=== PATIENT | male | born 1955 | race African-American/Black ===

== ENCOUNTER 2022-07-15 08:08 | Outpatient (CLI) | payer MEDICARE, MEDICAID, SELFPAY ==
[2022-07-15 10:09] LABS: Hemoglobin 11.6 g/dL (14.0-18.0)
[2022-07-15 10:13] LABS: Anion Gap 13 mmol/L (8-16); Blood Urea Nitrogen 17 mg/dL (9-20); Calcium 9.1 mg/dL (8.4-10.2); Carbon Dioxide 26 mmol/L (22-30); Chloride 100 mmol/L (98-107); Estimated Glomerular Filt Rate 57; Glucose 178 mg/dL (65-110); Potassium 3.7 mmol/L (3.4-5.0); Sodium 139 mmol/L (137-145)
== END 2022-07-15 08:09 | disposition home or self-care (01) ==
PROVIDERS: Anesthesiology; Urology; PCP Internal Medicine; Visit Provider Surgery
DX: T83.9XXA Unspecified complication of genitourinary prosthetic device, implant and graft, initial encounter (principal); K40.90 Unilateral inguinal hernia, without obstruction or gangrene, not specified as recurrent; E11.9 Type 2 diabetes mellitus without complications; Z01.818 Encounter for other preprocedural examination
CPT/HCPCS: 36415; 80048; 83036; 85014; 85018; 87086

== ENCOUNTER 2023-02-11 11:52 | Outpatient (CLI) | payer MEDICARE, MEDICAID, SELFPAY ==
--- NOTE | 2023-02-11 12:59 | ECG_ITS ---
Measurements Intervals [place] Rate: 75 P: 31 KS: 228 QRS: -35 QRSD: 93 T: 69 QT: 388 QTc: 434 Interpretive Statements SINUS RHYTHM WITH FIRST DEGREE AV BLOCK LEFT AXIS DEVIATION LEFT VENTRICULAR HYPERTROPHY WITH ST-T CHANGE BORDERLINE R WAVE PROGRESSION, ANTERIOR LEADS BORDERLINE ECG NO PREVIOUS ECG AVAILABLE FOR COMPARISON Electronically Signed On 02-11-2023 13:20:49 CDT by Delbert Marinelli D.O.
[2023-02-11 13:22] LABS: Hematocrit 35.2 % (42.0-52.0); Hemoglobin 11.1 g/dL (14.0-18.0)
[2023-02-11 13:32] LABS: Hemoglobin A1C 6.6 % (<5.7)
[2023-02-11 13:35] LABS: Anion Gap 9 mmol/L (8-16); Blood Urea Nitrogen 30 mg/dL (9-20); Calcium 8.9 mg/dL (8.4-10.2); Carbon Dioxide 26 mmol/L (22-30); Chloride 103 mmol/L (98-107); Estimated Glomerular Filt Rate 56; Glucose 89 mg/dL (65-110); Potassium 4.1 mmol/L (3.4-5.0); Sodium 138 mmol/L (137-145)
== END 2023-02-11 11:53 | disposition home or self-care (01) ==
LOC: ANHSURGERY 11:56
PROVIDERS: Anesthesiology; PCP Internal Medicine; Visit Provider Urology
DX: T83.9XXA Unspecified complication of genitourinary prosthetic device, implant and graft, initial encounter (principal); K40.90 Unilateral inguinal hernia, without obstruction or gangrene, not specified as recurrent; I10 Essential (primary) hypertension; E11.9 Type 2 diabetes mellitus without complications
CPT/HCPCS: 36415; 80048; 83036; 85014; 85018; 87086; 93005

== ENCOUNTER 2023-03-10 00:48 | Day surgery (SDC) | payer MEDICARE, MEDICAID, SELFPAY ==
[2023-02-11 12:03] VITALS: BMI 27.9
[2023-02-11 12:35] VITALS: BP 114/65; PULSE 75; RESP 18; TEMP 36.6; O2SAT 99
--- NOTE | 2023-02-11 12:38 | PC.NURSE ---
Addendum entered by Crystal Fofana RN 03/01/23 12:35: NOTIFIED PT BY PHONE THAT PER INSTRUCTIONS RECEIVED FROM DR. CRAVEN'S OFFICE, PLAVIX IS ONLY TO BE HELD 5 DAYS,NOT 7. INSTRUCTED TO TAKE LAST DOSE PLAVIX 03/04. VERBALIZED UNDERSTANDING. Original Note: Report to the Outpatient Waiting Room, entrance under the green pavilion located off [facility], at time __0830 on date _03/10/23 . Planned Procedure Time: _1030 . Time changes happen often and if your time is changed the preop area will call you the afternoon before. - You and your visitor will be asked to self-screen and do not enter if you have any COVID symptoms. - A mask is optional within the hospital at this time. Patients may have clear liquids (water, carbonated beverages, clear teas, apple juice) until 3 hours prior to surgery with a maximum of 20 ounces. - No food from midnight until time of surgery - Infants may have breast milk until 4 hours before surgery, infant formula 6 hours prior to surgery. - Children will be allowed to drink immediately following surgery. If applicable, please bring a bottle or sippy cup to assist with drinking. Juice, water, soda, and popsicles are readily available. For infants on formula, please bring formula the day of surgery. Pacifiers are allowed. Take the following medications with a SIP of water the morning of surgery: __CLONIDINE ,METOPROLOL AND FELODIPINE DO NOT STOP ANY OF YOUR OTHER PRESCRIPTION MEDICATIONS PRIOR TO SURGERY ?EXCEPT THE FOLLOWING Medications to discontinue per physician __PT STATES PER DR CRAVEN HOLD PLAVIX 7 DAYS PRE OP.LAST DOSE 03/02/23. ALL VITAMINS/SUPPLEMENTS 3 DAYS PRE OP.LAST DOSE 03/06/23 HIBICLENS SHOWER MORNING OF SURGERY Please no make-up, nail faroese, hairspray, perfume, deodorant, or body powder the day of surgery. No jewelry (including any body piercings) or valuables the day of surgery, leave them at home. Please take a shower or bath the night before, or the morning of, surgery with an antibacterial soap. Wear comfortable, loose fitting clothing. Children are encouraged to wear pajamas. - Jewelry must be removed prior to entering the operating room. Rings and piercings that are not removed may be cut off. - The hospital will not accept responsibility for valuables. - Please leave all valuables, including medications, at home the day of surgery. If you are going home after surgery, a licensed driver manager must drive you home. - NO public transportation without another adult if you receive anesthesia. - We recommend that an adult stay with you for 24 hours following discharge. - We also recommend that you do not drive, make important decision, drink alcoholic beverages, or take any drugs that were not prescribed by your health care provider for at least 24 hours after your discharge time. For Pediatric surgeries, we recommend two adults accompany the child home. Follow any additional instructions given to you from your surgeon. If you or anyone in your household have experienced Covid symptoms in the past week, please notify your surgeon or the nurse liaison at the phone number below for possible testing. VERBAL AND WRITTEN instructions given to __PATIENT and asked if any additional questions and then verbalized understanding. Patient advised to call surgeon office or pre surgery nurse liaison [phone] if any additional questions.
--- NOTE | 2023-03-09 17:17 | PM.SD2 ---
Same Day Admit/Disch: HPI History of Present Illness Chief complaint: right inguinal hernia,IPP malfunction Narrative: Jaspal Bernabe is a 67 year old male with diabetes and hypertension. He had penile prosthesis placed at [facility] sometime in 2020. Prosthesis was working well but he noticed a mass in the upper scrotum on the right side. He was seen by Dr. Santamaria in March of 2022. CT scan had been done and showed malposition of the reservoir as well as a right inguinal hernia underlying the reservoir. I the saw the patient in consultation and discussed him with Dr. Santamaria. Plans were made to proceed with repositioning or replacement of his implantable penile prosthesis as well as repair of a right inguinal hernia at the same open procedure. Unfortunately, the patient had had a stroke in December of 2021 and the procedure could not be done for at least 6 months afterwards. Once it was appropriate to proceed following his stroke, he had poorly controlled diabetes with severe hyperglycemia. His diabetes management and control is much improved. He is taken to surgery at this time for removal and/or replacement of his prosthesis as well as repair of his right inguinal hernia. [facility] Past Medical History Medical History Diabetes Hypertension Stroke 12/2021 Surgical History Surgical History History of implantation of penile prosthesis 2020 Family History Family History Other Breast cancer Lung cancer Social History Social History Smoking status: Never smoker Second hand tobacco smoke exposure: No Alcohol intake: never Substance use: never Substance use type: does not use Living arrangements: alone Occupation/Education: retired Spiritual care concerns: No Same Day Admit/Disch: Med Pre-admit Medications Home Medications Medication Instructions Recorded Confirmed Type aspirin 81 mg tablet,delayed 81 mg PO DAILY 03/30/22 02/11/23 History release atorvastatin 80 mg tablet 80 mg PO DAILY 03/30/22 02/11/23 History clopidogrel 75 mg tablet 75 mg PO DAILY 03/30/22 02/11/23 History dapagliflozin propanediol 5 mg 5 mg PO DAILY 07/11/22 05/25/23 History tablet (Farxiga) felodipine 10 mg tablet,extended 10 mg PO DAILY 03/30/22 02/11/23 History release 24 hr lisinopril 40 mg tablet 40 mg PO DAILY 03/30/22 02/11/23 History metformin 1,000 mg tablet 1,000 mg PO BID 03/30/22 02/11/23 History metoprolol tartrate 100 mg tablet 100 mg PO BID 03/30/22 02/11/23 History sitagliptin phosphate 100 mg 100 mg PO DAILY 03/30/22 02/11/23 History tablet (Januvia) acetaminophen 325 mg tablet 325 mg PO Q6H PRN Pain 04/13/22 02/11/23 History (Tylenol) chlorthalidone 25 mg tablet 25 mg QAM 07/15/22 02/11/23 History clonidine HCl 0.3 mg tablet 0.3 mg QAM 07/15/22 02/11/23 History cyanocobalamin (vitamin B-12) 1,000 mcg PO QAM 07/15/22 02/11/23 History 1,000 mcg tablet gabapentin 100 mg capsule 100 mg HS 07/15/22 02/11/23 History glimepiride 4 mg tablet 4 mg QAM 07/15/22 02/11/23 History pioglitazone 15 mg tablet 15 mg QAM 07/15/22 02/11/23 History multivitamin (Daily Multi-Vitamin 1 tablet PO DAILY 02/11/23 02/11/23 History tablet) oxycodone-acetaminophen 5 mg-325 1 - 2 tablet PO Q6H PRN pain #15 03/10/23 Rx mg tablet (Percocet) tabs sulfamethoxazole 800 1 tablet PO Q12H #14 tabs 03/10/23 Rx mg-trimethoprim 160 mg tablet (Bactrim DS) Exam Const: General: comfortable, no acute distress, alert and awake HENMT: Head: normocephalic and atraumatic Mouth: Yes Normal oral and palatal mucosa present Eyes: Conjunctivae: conjunctivae normal Pupils: Equal, round and reactive pupils present EOM: EOMs intact bilaterally Neck: Neck: normal visual inspection, no lymphadeno
[2023-03-10] VITALS (11 sets, daily range): BP systolic 127–169; BP diastolic 59–76; PULSE 64–81; RESP 12–18; TEMP 35.9–36.2; O2SAT 92–100
[2023-03-10] MEDS: ACETAMINOPHEN 500 MG TABLET 1000 MG PO (08:26)
[2023-03-10] MEDS: LACTATED RINGERS 1,000 ML 30 ML IV CONT ×2 (08:45→13:00)
[2023-03-10] MEDS: VANCOMYCIN 1,250 MG/NS 250 ML BAG 166.67 MG IVPB (08:50)
[2023-03-10] MEDS: GENTAMICIN SULFATE INJ 455 MG in DEXTROSE 5% 100 ML 100 MG IVPB (08:52)
[2023-03-10] MEDS: KETOROLAC 15 MG/ML VIAL (*BKC) IV PUSH (08:58)
[2023-03-10 09:16] LABS: Glucose Point of Care 141 mg/dl (65-105)
--- NOTE | 2023-03-10 09:19 | WPDANESEPPF ---
Anes - Initial Pre Proc Eval Procedure: Operation Date: 03/10/23 10:30 Proposed Procedures p Right Inguinal Hernia Repair - Eusebio Bautista MD s Inflatable Penile Implant [place] Replacement - Rose Dinero MD Date/Time: 03/10/23 09:20 Surgeon: Eusebio Bautista MD Pre Op Diagnosis: right inguinal hernia,IPP malfunction Patient Data Age: 67 Gender: M Height: 1.8 m Weight: 92.7 kg Last Vital Signs Temp 35.9 C L 03/10/23 09:04 Pulse 72 03/10/23 09:04 Resp 18 03/10/23 09:04 BP 138/66 03/10/23 09:04 Pulse Ox 100 03/10/23 09:04 O2 Del Method Room Air 03/10/23 09:04 Allergies Allergy/AdvReac Type Severity Reaction Status Date / Time diphenhydramine AdvReac Itching Verified 03/10/23 08:21 [From [facility]] Home Medications Medication Instructions Recorded Confirmed Type aspirin 81 mg tablet,delayed 81 mg PO DAILY 03/30/22 02/11/23 History release atorvastatin 80 mg tablet 80 mg PO DAILY 03/30/22 02/11/23 History clopidogrel 75 mg tablet 75 mg PO DAILY 03/30/22 02/11/23 History dapagliflozin propanediol 5 mg 5 mg PO DAILY 03/30/22 02/11/23 History tablet (Farxiga) felodipine 10 mg tablet,extended 10 mg PO DAILY 03/30/22 02/11/23 History release 24 hr lisinopril 40 mg tablet 40 mg PO DAILY 03/30/22 02/11/23 History metformin 1,000 mg tablet 1,000 mg PO BID 03/30/22 02/11/23 History metoprolol tartrate 100 mg tablet 100 mg PO BID 03/30/22 02/11/23 History sitagliptin phosphate 100 mg 100 mg PO DAILY 03/30/22 02/11/23 History tablet (Januvia) acetaminophen 325 mg tablet 325 mg PO Q6H PRN Pain 04/13/22 02/11/23 History (Tylenol) chlorthalidone 25 mg tablet 25 mg QAM 07/15/22 02/11/23 History clonidine HCl 0.3 mg tablet 0.3 mg QAM 07/15/22 02/11/23 History cyanocobalamin (vitamin B-12) 1,000 mcg PO QAM 07/15/22 02/11/23 History 1,000 mcg tablet gabapentin 100 mg capsule 100 mg HS 07/15/22 02/11/23 History glimepiride 4 mg tablet 4 mg QAM 07/15/22 02/11/23 History pioglitazone 15 mg tablet 15 mg QAM 07/15/22 02/11/23 History multivitamin (Daily Multi-Vitamin 1 tablet PO DAILY 02/11/23 02/11/23 History tablet) Laboratory Tests 03/10/23 09:00 POC Capillary Glucose 141 H mg/dl (65-105) Patient hx anesthesia problems: none Family hx anesthesia problems: none Results Review: All pre-operative results and documents have been reviewed as part of the pre-operative evaluation. [facility] Past Medical History Medical History Diabetes Hypertension Stroke 12/2021 Surgical History Surgical History History of implantation of penile prosthesis 2020 Family History Family History Other Breast cancer Lung cancer Social History Social History Smoking status: Never smoker Second hand tobacco smoke exposure: No Alcohol intake: never Substance use: never Substance use type: does not use Living arrangements: alone Occupation/Education: retired Spiritual care concerns: No Anes - Eval Final PreProcedure Day of Procedure 03/10/23 09:20 Patient weight: overweight Heart: regular rate and rhythm Lungs: clear to auscultation Airway: Mallampati scale class II Neurological: alert and oriented Last oral intake: >/= 8 hours ASA classification: III Emergent: no Anesthetic plan: proceed Anesthesia type and monitoring: general LMA and standard monitoring Results Review: All pre-operative results and documents have been reviewed as part of the pre-operative evaluation. Informed Consent: The patient's anesthetic plan and its attendant risks and benefits were discussed with the patient/family/POA. Questions were solicited and answers provided to the satisfaction of the patient/family/POA.
--- NOTE | 2023-03-10 10:05 | WPDHPUPDATE1 ---
History and Physical Update Update Date/Time: 03/10/23 10:05 History and Physical has been reviewed, including an updated exam of the patient. There are NO changes in the patient's condition. Risks, benefits, and alternatives have been discussed and questions answered. Patient agrees to proceed with procedure.
--- NOTE | 2023-03-10 10:10 | W.PM.PROC2 ---
Procedure Note - Detailed Date of Procedure 03/10/23 Pre-op Diagnosis right inguinal hernia,IPP malfunction Post-op Diagnosis Same Procedure Performed Right inguinal hernia repair Surgeon Eusebio Bautista MD [employer] Associate Ayaka Hassan [facility] Anesthesia General, Local and Other (Xaracoll) Indications Patient had an inflatable penile prosthesis placed couple of years ago at [facility]. He noticed a mass in his upper scrotum about a year later. CT imaging showed he had a large right inguinal hernia and malposition of the reservoir. Patient is taken to surgery now for repair of his right inguinal hernia. Dr. Santamaria has also seen the patient and plans to revise his inflatable penile prosthesis at the same operation. Dr. Dinero will dictate the penile prosthesis portion of the procedure in a separate dictation. Findings Right inguinal hernia, reservoir and upper scrotum Description of Procedure Patient was seen in the preoperative holding area. He was taken to surgery and induced into general anesthesia. The genitalia and right inguinal regions were prepped and draped. The proposed incision was marked on the skin. Local was infiltrated into the skin and the deeper subcutaneous tissues. Incision was made dissection carried down through the subcutaneous. Crossing veins were cauterized and divided. We dissected down to the external oblique aponeurosis. At this point Dr. Dinero came into the operative field and removed the previous reservoir which was positioned in the upper scrotum. The tubing to the penile prosthesis was clamped and left clamped while the hernia was repaired. I then infiltrated local deep to the external oblique aponeurosis. The aponeurosis was opened laterally and extended medially through the external ring. The leaves of the aponeurosis were freed from the underlying inguinal canal structures. The ilioinguinal nerve was left attached to the cord and uninjured throughout the surgery. The cord was mobilized medially on a Disney drain. I dissected the cord back to the internal ring. The direct hernia sac was found easily. It was dissected away from the cord structures as well as the remainder of the inguinal canal structures. It was also attached to the fibrous capsule around the reservoir. It was dissected away from the fibrous capsule so that it was fully dissected from surrounding structures. I then scored through the transversalis fascia circumferentially around the base of the direct hernia sac. The sac was then dunked into the retroperitoneum. Two 3-0 Vicryl sutures were used to loosely approximate the transversalis fascia over the defect so that the hernia would remain reduced. I then used 0 Ethibond suture and in Bassini fashion closed the hernia defect. I started medially and sutured the transversalis fascia to the pubic tubercle. We proceeded laterally with interrupted 0 Ethibond sutures and sutured transversalis fascia to the reflection of the inguinal ligament. This was continued until the internal ring was reapproximated such that it would barely admit the tip of a clamp. Some lipomatous tissue was then removed from the spermatic cord and discarded. The operation was then turned back over to Dr. Dinero. Dr. Dinero placed a new prosthetic reservoir in the area the external oblique. A reattached this tubing to the existing tubing. Once he was satisfied that the reservoir was repositioned and working well, I went back to closure of the hernia repair. Xaracoll was placed over the hernia repair. I then placed the cord over the Xaracoll. The external oblique aponeurosis was then closed with interrupted 3-0 Vicryl suture. The 2nd piece of Xaracoll was then placed over the external oblique aponeurosis. Amber's fascia was closed with interrupted 3-0 Vicryl suture. The last piece of Xaracoll was placed in the subcutaneous. The skin was loosely approximated with subcuticular interrupted 4-0 V
--- NOTE | 2023-03-10 11:07 | WPDHPUPDATE1 ---
History and Physical Update Update Date/Time: 03/10/23 11:07 History and Physical has been reviewed, including an updated exam of the patient. There are NO changes in the patient's condition. Risks, benefits, and alternatives have been discussed and questions answered. Patient agrees to proceed with procedure.
[2023-03-10] MEDS: NACL 0.9% IRRIG BAG 1,000 ML, VANCOMYCIN HCL 1,000 MG, GENTAMICIN SULFATE INJ 80 MG IRRIGATION (11:56)
[2023-03-10] MEDS: NACL 0.9% IRRIG BAG 1,000 ML, ceFAZolin 1 GM, TOBRAMYCIN SULFATE INJ 40 MG IRRIGATION (11:56)
--- NOTE | 2023-03-10 12:47 | W.PM.PROC2 ---
Procedure Note - Detailed Date of Procedure 03/10/23 Pre-op Diagnosis Penile prosthesis reservoir herniation Post-op Diagnosis Same Procedure Performed Penile prosthesis reservoir replacement Surgeon Rose Dinero MD Anesthesia General Findings Herniation of penile prosthesis reservoir into the superior scrotum Description of Procedure Informed consent was obtained. Patient was taken the operating. Incision and opening of the external oblique fascia was performed by Dr. Bautista in preparation of his hernia repair. The patient's previous penile prosthesis reservoir was identified in the superior scrotum the reservoir was brought up through the incision and then tubing was then cut after placement of a rubber shod. We then measured a total of 85mL in the reservoir. At this point hernia repair was performed by Dr. Bautista closing the floor of the hernia. We then the external oblique muscle and under the muscle, a preperitoneal space was bluntly dissected and irrigated. We then placed a [employer] conceal reservoir. [place] was filled with 85mL of injectable saline without back pressure. We then used the Quick connect device to connect the reservoir to the penile prosthesis pump. The penile prosthesis was then inflated and shown to function appropriately. The case was then turned back over to Dr. Bautista to complete hernia repair and closure. Pathology None sent Complications No immediate complications Condition Stable Disposition No change
[2023-03-10] MEDS: LIDO 1%/EPINEPHRINE 1:100,000 50 ML VIAL 20 ML INFILTRATE (12:48)
[2023-03-10 13:05] LABS: Glucose Point of Care 114 mg/dl (65-105)
[2023-03-10] MEDS: ONDANSETRON INJ 4 MG/2 ML VIAL IV PUSH (13:32)
[2023-03-10] MEDS: PROMETHAZINE HCL 25 MG/ML AMPUL 12.5 MG IV PUSH (13:57)
--- NOTE | 2023-03-10 15:41 | SUR.PHASEII ---
pt said he was on another antibiotic that he has to take for an additional two days by dr freed. this nurse called dr freed since dr singh also prescribed bactrim. dr freed said to take both antibiotics at the same time. pt and pt's daughter were informed
== END 2023-03-10 15:42 | disposition home or self-care (01) ==
PROVIDERS: Urology; PCP Internal Medicine; Visit Provider Surgery
PROC: (CPT 49505; principal; 2023-03-10 10:30)
PROC: (CPT 54410; 2023-03-10 10:30)
DX: K40.90 Unilateral inguinal hernia, without obstruction or gangrene, not specified as recurrent (principal); T83.028A Displacement of other urinary catheter, initial encounter; Y83.8 Other surgical procedures as the cause of abnormal reaction of the patient, or of later complication, without mention of misadventure at the time of the procedure; E11.9 Type 2 diabetes mellitus without complications; I10 Essential (primary) hypertension; Z86.73 Personal history of transient ischemic attack (TIA), and cerebral infarction without residual deficits; Z79.82 Long term (current) use of aspirin; Z79.02 Long term (current) use of antithrombotics/antiplatelets; Z79.84 Long term (current) use of oral hypoglycemic drugs
CPT/HCPCS: 49505; 54410; 82948; A9270; C1813; J0330; J0690; J1170; J1580; J1885; J2250; J2405; J2550; J2704; J3010; J3260; J3370; J7030; J7120